=== PATIENT | female | born 1990 | race Caucasian/White ===

== ENCOUNTER 2017-10-30 19:36 | Emergency (ER) | payer OTHER ==
[~2017-10-30] VITALS: Ht 152.4 cm; Wt 59.0 kg
[~2017-10-30 19:36] MED LIST: LOESTRIN FE PO; MOTRIN600 MG PO; Motrin PO; NATALCARE RX1 TABLET PO; NORCO 5/3251 TABLET PO; Percocet 5/325,Endoc PO; TRAMADOL HCL50 MG PO; ZOFRAN ODT4 MG PO; ZYRTEC10 M2 PO
[2017-10-30 21:05] LABS: HEMATOCRIT 36.4 % (36.0-46.0); HEMOGLOBIN 12.6 G/DL (11.9-15.5); MCH 30.2 PG (29.0-34.0); MCHC 34.6 G/DL (30.0-36.0); MCV 87.3 FL (83-99); PLATELET COUNT 254 K/uL (156-360); RBC DIS.WIDTH-CV 12.7 % (11.8-14.6); RBC DIS.WIDTH-SD 40.5 % (39-53); RED BLOOD COUNT 4.17 M/uL (3.80-5.20)
[2017-10-30 21:09] LABS: CHLORIDE 101 mEq/L (99-109); POTASSIUM 3.8 mEq/L (3.7-5.4); SODIUM 131 mEq/L (136-147)
[2017-10-30 21:10] LABS: GLUCOSE 163 mg/dL (70-99)
[2017-10-30 21:14] LABS: CREATININE 0.8 mg/dL (0.6-1.3); GFR ESTIMATE (CALCULATED) > 59 mL/min/
[2017-10-30 21:15] LABS: UREA NITROGEN (BUN) 12 mg/dL (9-23)
[2017-10-30 21:17] LABS: CREATINE KINASE 51 IU/L (1-294)
[2017-10-31 01:00] VITALS: BP 123/75
[2017-11-06 15:36] LABS: ACTIVATED PROTEIN C RESIST+ 1.6 ratio (>=2.1); ANTITHROMBIN III ACTIVITY+ 87 (80-120); APCR to FVL REFLEX Has been added (()); DRVVT Mixing Study Interp Not Indicated (()); FACTOR VIII ACTIVITY+ 207 % (50-180); PROTEIN C FUNCTIONAL ACTIVITY+ 86 % (70-180); PTT-LA 29 sec (<=40); Protein S, Free 67 % normal (50-147); Thrombosis Consult Level Limited (()); dRVVT Screen 42 sec (<=45)
== END 2017-10-31 01:00 | disposition short-term general hospital (02) ==
LOC: EME 19:36
PROVIDERS: Physician Assistant
DX: I82.412 Acute embolism and thrombosis of left femoral vein (principal); I82.422 Acute embolism and thrombosis of left iliac vein; I82.432 Acute embolism and thrombosis of left popliteal vein; Z97.5 Presence of (intrauterine) contraceptive device
CPT/HCPCS: 71275; 80048; 81240 90; 82550; 83090 90; 85027; 85240 90; 85300 90; 85303 90; 85305 90; 85306 90; 85610; 85613 90; 85730; 85730 90; 86146 90; 86147 90; 93971; 99281; 99285; J3010; J7050